=== PATIENT | female | born 1945 | race Caucasian/White ===

== ENCOUNTER 2017-11-15 15:41 | Emergency (ER) | payer MEDICARE, OTHER ==
[~2017-11-15 15:41] MED LIST: ACE3 PO; ASPI-715 PO; CALC-649 PO; CALCIUM; DIOVAN HCTZ PO; ERGO500029 PO; FISH OIL 1,2001 CAP PO; IBU200 PO; IBU800 PO; MULT-1 PO; MULT-1335 PO; PER PO; VALS160T20 PO; VALS1TAB61 PO; VITAMIN D
[2017-11-15] MEDS ORDERED: CALC500T6 PO (15:49)
[2017-11-15] MEDS ORDERED: METO25TA93 PO (15:49)
[2017-11-15] MEDS ORDERED: CHOL10005 PO (15:49)
[2017-11-15] MEDS ORDERED: LISI-362 PO (15:49)
[2017-11-15] MEDS ORDERED: DULO60CA7 PO (15:49)
--- NOTE | 2017-11-15 16:13 | ER Report ---
History and Physical Time Seen By MD: 16:12 Hx. of Stated Complaint: PT REPORTS SOB SINCE THURSDAY AND SWELLING IN L LOWER LEG SINCE THURSDAY HPI/ROS CHIEF COMPLAINT: Shortness of breath and left lower leg pain and swelling HISTORY OF PRESENT ILLNESS: 71-year-old female with a past medical history of DVT after foot surgery 30 years ago who is not on anticoagulation at this time presents with left lower leg pain and redness and swelling that began 2 days ago , it is associated with dyspnea on exertion. She states she tripped and fell 12 days ago. She states the pain in her leg is moderate. She denies cough, fever, chest pain. She reports she is able to walk on her left leg without pain and has full range of motion of her left knee and ankle. REVIEW OF SYSTEMS: Constitutional: No fever, no chills. Eyes: No discharge. ENT: No sore throat. Cardiovascular: No chest pain, no palpitations. Respiratory: As above Gastrointestinal: No abdominal pain, no vomiting. Genitourinary: No hematuria. Musculoskeletal: No back pain. Skin: Mild patchy redness to left lower extremity below the knee. Neurological: No headache. Allergies: Coded Allergies: oxycodone (Verified Allergy, Intermediate, HIVES, 11/15/17) shellfish derived (Verified Allergy, Unknown, 11/15/17) Home Meds Active Scripts Cephalexin Monohydrate (CEPHALEXIN) 500 Mg Cap, 500 MG PO Q6H, #20 CAP 0 Refills Prov:NUZHAT CASAS MD 11/15/17 Reported Medications Cholecalciferol (Vitamin D3) (VITAMIN D3) 1,000 Unit Tablet, 2000 UNIT PO QDAY, TAB 11/15/17 Calcium Carbonate (CALCIUM) 500 Mg Tablet, 500 MG PO QDAY 11/15/17 Duloxetine HCl (Duloxetine HCl) 60 Mg Capsule.dr, 1 CAP PO QDAY 11/15/17 Metoprolol Tartrate (METOPROLOL TARTRATE) 25 Mg Tablet, 1 TAB PO BID, TAB 11/15/17 Lisinopril (LISINOPRIL) 10 Mg Tablet, 10 MG PO QDAY, TAB 11/15/17 Multivitamins W-Minerals (Multiple Vitamin) 1 Tab Tablet, 1 TAB PO DAILY, 0 Refills 05/21/11 Aspirin (Aspirin) 81 Mg Tablet.dr, 81 MG PO DAILY, 0 Refills 05/21/11 Discontinued Reported Medications Valsartan (Diovan) 160 Mg Tablet, PO DAILY 10/21/11 [Vitamin D] No Conflict Check, 800, 0 Refills 05/21/11 [Calcium] No Conflict Check, 0 Refills 05/21/11 Hx Smoking: Yes (1-2 PACKS/WEEK) Hx Substance Use Disorder: No Hx Alcohol Use: No Constitutional Vital Sign - Last 24 Hours 11/15/17 11/15/17 11/15/17 11/15/17 15:42 15:51 15:57 16:00 Temp 97.6 Pulse 104 103 Resp 16 31 B/P (MAP) 153/79 153/79 (103) 135/74 (94) Pulse Ox 91 93 O2 Delivery Room Air 11/15/17 11/15/17 11/15/17 11/15/17 16:01 16:06 16:15 16:21 Pulse 98 87 83 Resp 9 8 B/P (MAP) 134/93 (107) Pulse Ox 94 91 11/15/17 11/15/17 11/15/17 11/15/17 16:30 16:36 16:45 16:51 Pulse 84 81 Resp 12 41 B/P (MAP) 136/73 (94) 127/73 (91) Pulse Ox 91 93 11/15/17 11/15/17 11/15/17 11/15/17 17:11 17:26 17:30 17:41 Pulse 78 72 68 Resp 12 B/P (MAP) 136/70 (92) Pulse Ox 94 92 90 11/15/17 11/15/17 11/15/17 17:45 17:56 18:00 Pulse 74 B/P (MAP) 138/78 (98) 131/62 (85) Pulse Ox 94 Physical Exam General Appearance: The patient is alert, has no immediate need for airway protection and no signs of toxicity. Eyes: Pupils equal and round no pallor or injection. ENT, Mouth: Mucous membranes are moist. Respiratory: There are no retractions, lungs are clear to auscultation. Cardiovascular: Regular rate and rhythm. Gastrointestinal: Abdomen is soft and non tender, no masses, bowel sounds normal. Neurological: Alert and oriented 3 no motor or sensory deficits. Skin: Warm and dry, mild patchy erythema in 3 or 4 spots on the left lower extremity from the knee to the ankle. Musculoskeletal: Moderate tenderness to the left calf and ankle, mild swelling in the same region. Full range of motion of all lower extremity joints. DIFFERENTIAL DIAGNOSIS: After history and physical exam differential diagnosis was considered for shortness of breath including but not limited to pulmonary infectious process, COPD, asthma, pulmonary embolus and congestive heart failure. and for leg swelling including but not limited to hypoalbuminemia, congestive heart failure, cor pulmonale, chronic venous stasis and DVT. Medical Decision Making Data Points Result Diagram: 11/15/17 1554 11/15/17 1554 Laboratory Hematology Test 11/15/17 15:54 Red Blood Count 4.82 M/uL (4.17-5.56) Mean Corpuscular Volume 88.4 fL (80.0-96.0) Mean Corpuscular Hemoglobin 30.2 pg (26.0-33.0) Mean Corpuscular Hemoglobin Concent 34.1 g/dL (32.0-36.0) Red Cell Distribution Width 13.5 % (11.5-14.5) Mean Platelet Volume 7.7 fL (7.2-11.1) Neutrophils (%) (Auto) 56.4 % (39.4-72.5) Lymphocytes (%) (Auto) 30.8 % (17.6-49.6) Monocytes (%) (Auto) 9.5 % (4.1-12.4) Eosinophils (%) (Auto) 2.5 % (0.4-6.7) Basophils (%) (Auto) 0.8 % (0.3-1.4) Nucleated RBC Relative Count (auto) 0.0 /100WBC Neutrophils # (Auto) 5.4 K/uL (2.0-7.4) Lymphocytes # (Auto) 2.9 K/uL (1.3-3.6) Monocytes # (Auto) 0.9 K/uL (0.3-1.0) Eosinophils # (Auto) 0.2 K/uL (0.0-0.5) Basophils # (Auto) 0.1 K/uL (0.0-0.1) Nucleated RBC Absolute Count (auto) 0.00 K/uL Prothrombin Time 12.9 seconds (12.0-14.4) Prothromb Time International Ratio 0.98 Activated Partial Thromboplast Time 26 seconds (23-35) D-Dimer Quantitative (PE/DVT) 0.63 ug/ml (0-0.50) Sodium Level 140 mmol/L (137-145) Potassium Level 4.2 mmol/L (3.5-5.0) Chloride Level 102 mmol/L (98-107) Carbon Dioxide Level 25 mmol/L (22-31) Blood Urea Nitrogen 17 mg/dl (7-18) Creatinine 1.00 mg/dl (0.52-1.04) Glomerular Filtration Rate Calc 54.7 Random Glucose 175 mg/dl (75-110) Calcium Level 10.2 mg/dl (8.4-10.2) Chemistry Test 11/15/17 15:54 White Blood Count 9.6 k/uL (4.5-11.0) Red Blood Count 4.82 M/uL (4.17-5.56) Hemoglobin 14.6 g/dL (12.0-16.0) Hematocrit 42.6 % (34.0-47.0) Mean Corpuscular Volume 88.4 fL (80.0-96.0) Mean Corpuscular Hemoglobin 30.2 pg (26.0-33.0) Mean Corpuscular Hemoglobin Concent 34.1 g/dL (32.0-36.0) Red Cell Distribution Width 13.5 % (11.5-14.5) Platelet Count 395 K/uL (150-450) Mean Platelet Volume 7.7 fL (7.2-11.1) Neutrophils (%) (Auto) 56.4 % (39.4-72.5) Lymphocytes (%) (Auto) 30.8 % (17.6-49.6) Monocytes (%) (Auto) 9.5 % (4.1-12.4) Eosinophils (%) (Auto) 2.5 % (0.4-6.7) Basophils (%) (Auto) 0.8 % (0.3-1.4) Nucleated RBC Relative Count (auto) 0.0 /100WBC Neutrophils # (Auto) 5.4 K/uL (2.0-7.4) Lymphocytes # (Auto) 2.9 K/uL (1.3-3.6) Monocytes # (Auto) 0.9 K/uL (0.3-1.0) Eosinophils # (Auto) 0.2 K/uL (0.0-0.5) Basophils # (Auto) 0.1 K/uL (0.0-0.1) Nucleated RBC Absolute Count (auto) 0.00 K/uL Prothrombin Time 12.9 seconds (12.0-14.4) Prothromb Time International Ratio 0.98 Activated Partial Thromboplast Time 26 seconds (23-35) D-Dimer Quantitative (PE/DVT) 0.63 ug/ml (0-0.50) Glomerular Filtration Rate Calc 54.7 Calcium Level 10.2 mg/dl (8.4-10.2) Coagulation Test 11/15/17 15:54 Prothrombin Time 12.9 seconds Prothromb Time International Ratio 0.98 Activated Partial Thromboplast Time 26 seconds D-Dimer Quantitative (PE/DVT) 0.63 ug/ml EKG/Imaging Imaging Results: CTA scan of the chest was obtained. The results of the study are normal. The study was read by the radiologist. I viewed the images myself on the PACS system. Results: Ultrasound of the left lower extremity duplex was obtained. The results of the study are normal. The study was read by the radiologist. I viewed the images myself on the PACS system. ED Course/Re-evaluation ED Course Patient is at risk for DVT and PE given prior provoked DVT. D-dimer was elevated slightly. CTA chest is normal, no PE, no pneumonia. Duplex ultrasound of left lower extremity shows no DVT. Pain and swelling of lower extremity is likely cellulitis. Will prescribe Keflex. Patient is instructed to keep her leg elevated and follow up with her primary care doctor. There is no evidence of hypoxia or other pulmonary disease process while patient is in the emergency department, it is likely that her dyspnea is secondary to anxiety. She is reassured that she has no evidence of blood clots. Decision to Disposition Date: Nov 15, 2017 Decision to Disposition Time: 17:52 Depart Departure Latest Vital Signs Vital Signs Date Time Temp Pulse Resp B/P (MAP) Pulse Ox O2 Delivery O2 Flow Rate FiO2 11/15/17 18:00 131/62 (85) 11/15/17 17:56 74 94 11/15/17 17:11 12 11/15/17 15:42 97.6 Room Air Impression: Primary Impression: Cellulitis Condition: Improved Disposition: HOME OR SELF-CARE Referrals: [facility] (PCP) New Scripts Cephalexin Monohydrate (CEPHALEXIN) 500 Mg Cap 500 MG PO Q6H, #20 CAP 0 Refills Prov: NUZHAT CASAS MD 11/15/17 Problem Qualifiers Primary Impression: Cellulitis Site of cellulitis: extremity Site of cellulitis of extremity: lower extremity Laterality: left Qualified Codes: L03.116 - Cellulitis of left lower limb NUZHAT CASAS MD Nov 15, 2017 16:13
[2017-11-15 16:19] LABS: PLATELET COUNT, AUTOMATED 395 K/uL (150-450)
[2017-11-15 16:29] LABS: INR 0.98
[2017-11-15] MEDS ORDERED: IOPAMIDOL 76% 100 ML INFUS BTL 100 ML ONE (16:46)
[2017-11-15] MEDS ORDERED: NS 0.9% 150 ML BAG 150 ML ONE (16:47)
[2017-11-15] MEDS ORDERED: diphenhydrAMINE 50 MG/ML VIAL ONE (16:52)
--- NOTE | 2017-11-15 17:30 | RADIOLOGY IMAGING REPORT ---
FACILITY: [facility] - [place] PATIENT NAME: Liz Weinstein : 1945 MR: [id number] V: [id number] EXAM DATE: ORDERING PHYSICIAN: NUZHAT CASAS TECHNOLOGIST: Location: [facility] [place] Patient: Liz Weinstein : 1945 Visit/Account:[id number] Date of Sevice: 11/15/2017 EXAMINATION: CT CHEST PULMONARY ANGIOGRAM COMPARISON: Thyroid ultrasound 03/09/2009 HISTORY: Shortness of breath. Elevated d-dimer. PROCEDURE: Pulmonary arterial phase imaging of the chest with 100 mL intravenous Isovue 370. Reconstr uction of the source data set includes multiplanar 2D in the sagittal and coronal planes, and 3D luis nstructed coronal slab MIP series. One of the following dose optimization techniques was utilized in the performance of this exam: Autom ated exposure control; adjustment of the mA and/or kV according to the patient's size; or use of an i terative reconstruction technique. Specific details can be referenced in the facility's radiology C T exam operational policy. FINDINGS: Pulmonary vasculature: There is good contrast opacification of the pulmonary arterial system. No pul monary embolism. Main pulmonary artery size is normal. Cardiac and mediastinum: Cardiac chambers are mildly enlarged. No pericardial effusion. No thoracic a ortic aneurysm. No thoracic lymph node enlargement. Right lower thyroid 2.5 cm low-attenuation nodule ; given differences in modality, this is likely little changed since the ultrasound from 2008. Lungs and pleura: No focal consolidation or pulmonary nodule. No pneumothorax, pulmonary edema, or pl eural effusion. Airways: Minor tracheobronchomalacia. No airway occlusion. Upper abdomen: No evidence of acute disease within the visualized upper abdomen. Osseous structures: Mild degenerative change throughout the visualized spine. No acute changes. IMPRESSION: No pulmonary embolism or evidence of acute cardiopulmonary disease. Report Dictated By: Sylvester Shearer MD at 11/15/2017 5:15 PM Report E-Signed By: Sylvester Shearer MD at 11/15/2017 5:25 PM WSN:[id number]
[2017-11-15] MEDS ORDERED: CEPH500C24 PO (17:54)
[2017-11-15 18:00] VITALS: BP 131/62
[2017-11-15] MEDS ORDERED: CEPHALEXIN 500 MG CAP TH 2 CAP/BOTTLE PO ONE (18:05)
--- NOTE | 2017-11-15 18:08 | RADIOLOGY IMAGING REPORT ---
FACILITY: [facility] PATIENT NAME: Liz Weinstein : 1945 MR: [id number] V: [id number] EXAM DATE: ORDERING PHYSICIAN: NUZHAT CASAS TECHNOLOGIST: Location: [facility] - [place] Patient: Liz Weinstein : 1945 Visit/Account:[id number] Date of Sevice: 11/15/2017 Venous Doppler ultrasound left lower extremity Indication: Left leg swelling.. Comparison: None Available Findings: Duplex Doppler and color flow imaging was performed. The common femoral, femoral, and popliteal veins are all patent and compressible with normal Doppler wave forms. There are normal responses to augme ntation. The posterior tibial and peroneal veins are patent in the calf. The proximal greater saphenous vein is also normal. IMPRESSION: No evidence of deep venous thrombosis of the left lower extremity. Report Dictated By: Lalit Barrera MD at 11/15/2017 6:02 PM Report E-Signed By: Lalit Barrera MD at 11/15/2017 6:03 PM WSN:[id number]
== END 2017-11-15 18:12 | disposition home or self-care (01) ==
LOC: ER 16:08
DX: L03.116 Cellulitis of left lower limb (principal)
CPT/HCPCS: 71275; 85025; 85379; 85610; 85730; 93971; 99284; J1200; Q9967; 82310; 82374; 82435; 82565; 82947; 84132; 84295; 84520